=== PATIENT | male | born 1945 | race Caucasian/White ===

== ENCOUNTER 2017-06-06 09:00 | Outpatient (RCR) | payer MEDICARE, OTHER ==
[2017-06-05 10:03] VITALS: BP 144/78; PULSE 69; TEMP 98.1
[~2017-06-06] VITALS: Ht 170.2 cm; Wt 70.0 kg
[~2017-06-06 09:00] MED LIST: ASPIRIN E.C. 8181 MG PO; BROVANA15 MCG/2 M IH; FLOMAX 0.40.4 MG/CAP PO; FORADIL AERO0.012 MG IH; METOZOLV ODT10 MG PO; MEVACOR40 MG PO; NORVASC 5MG5 MG/TAB PO; ONE DAILY1 TA1 PO; PRINZIDE 12.5 M1 TA1 PO; RT SPIRIVA18 MCG IH; SYNTHROID0.075 MG/T PO; UCERIS PO; ZEBETA 5MG5 MG PO; [UNRECOGNIZED DRUG - OTHER] PO
[2017-06-06 09:08] VITALS: BP 142/65; PULSE 85; TEMP 98.2
== END 2017-09-01 15:17 | disposition home or self-care (01) ==
LOC: EUO 09:00
DX: C34.12 Malignant neoplasm of upper lobe, left bronchus or lung (principal); J44.9 Chronic obstructive pulmonary disease, unspecified
CPT/HCPCS: C1751; C1894; J1644

== ENCOUNTER → 2017-06-16 | Outpatient (REF) | LOC: ZAIV 06-12 06:10 | DX: Z02.89 Encounter for other administrative examinations (principal) ==

== ENCOUNTER 2017-09-24 13:22 | Outpatient (CLI) | payer MEDICARE, OTHER ==
[2017-09-24 13:51] VITALS: BP 122/61; PULSE 101; TEMP 98.4
== END 2017-09-24 14:19 | disposition home or self-care (01) ==
LOC: EUO 13:22
DX: C34.12 Malignant neoplasm of upper lobe, left bronchus or lung (principal)